=== PATIENT | male | born 1960 | race Caucasian/White ===

== ENCOUNTER → 2024-10-01 11:06 | Outpatient (REF) | payer BC, SELFPAY | LOC: RCS 11:06 | PROVIDERS: ATTENDING PHYSICIAN Internal Medicine Cardiovascular Disease; FAMILY PHYSICIAN Registered Nurse | DX: I35.0 Nonrheumatic aortic (valve) stenosis (principal) | CPT/HCPCS: 93306 ==

== ENCOUNTER → 2025-08-09 08:50 | Outpatient (REF) | payer BC, SELFPAY | LOC: RST 08:50 | PROVIDERS: ATTENDING PHYSICIAN Registered Nurse | DX: R13.19 Other dysphagia (principal) | CPT/HCPCS: 74230; 92611 ==